=== PATIENT | male | born 1970 | race Caucasian/White ===

== ENCOUNTER 2019-03-14 09:06 | Emergency (ER) | payer BC, MEDICAID, OTHER ==
[~2019-03-14] VITALS: Ht 185.4 cm; Wt 127.3 kg
[2019-03-14 09:49] LABS: BASOPHILS % (AUTO) 0.3 % (0-1); EOSINOPHILS % (AUTO) 0.2 % (0-6); HEMATOCRIT 48.2 % (42.0-52.0); HEMOGLOBIN 16.6 g/dl (14.0-17.9); LYMPHOCYTES % (AUTO) 16.4 % (21-51); MEAN CORPUSCULAR HEMOGLOBIN 29.8 PG (27.0-31.0); MEAN CORPUSCULAR HGB CONC 34.5 g/dL (33.0-36.5); MEAN CORPUSCULAR VOLUME 86.5 FL (78-98); MEAN PLATELET VOLUME 10.1 FL (7.4-10.4); MONOCYTES % (AUTO) 16.6 % (2-12); NEUTROPHILS # (AUTO) 3.9 X10'3 (1.8-7.7); NEUTROPHILS % (AUTO) 66.5 % (42-75); PLATELET COUNT 177 X10'3 (140-440); RED BLOOD COUNT 5.57 X10'6 (4.70-6.10); RED CELL DISTRIBUTION WIDTH 13.4 % (11.5-14.5); WHITE BLOOD COUNT 5.9 X10'3 (4.5-11.0)
[2019-03-14 10:02] LABS: ALANINE AMINOTRANSFERASE 34 U/L (12-78); ALBUMIN 4.3 G/DL (3.4-5.0); ALKALINE PHOSPHATASE 80 IU/L (46-116); ANION GAP 16 (8-16); ASPARTATE AMINO TRANSFERASE 29 U/L (10-37); BILIRUBIN,TOTAL 0.8 MG/DL (0.1-1.0); BLOOD UREA NITROGEN 17 MG/DL (7-18); BUN/CREATININE RATIO 14.5 (5.4-32.0); CALCIUM 9.6 MG/DL (8.5-10.1); CHLORIDE 100 MMOL/L (99-107); CREATININE 1.17 MG/DL (0.60-1.10); GLUCOSE 134 MG/DL (70-104); POTASSIUM 3.6 MMOL/L (3.5-5.1); SODIUM 134 MMOL/L (135-145); TOTAL CARBON DIOXIDE 17.9 MMOL/L (24-32); TOTAL PROTEIN 8.5 G/DL (6.4-8.2); eGFR 67 ML/MIN
[2019-03-14] MEDS ORDERED: ondansetron/PF 4mg/2ml inj IV ONE (10:10)
[2019-03-14] MEDS ORDERED: LORazepam 2 mg/ml vial IV ONE (10:10)
[2019-03-14] MEDS ORDERED: normal saline 1000ML IV soln IVB ONE (10:10)
[2019-03-14] MEDS ORDERED: ONDA4TAB12 PO (10:36)
[2019-03-14] MEDS ORDERED: AZIT-72 PO (10:37)
[2019-03-14 10:55] VITALS: BP 156/101
== END 2019-03-14 10:47 | disposition home or self-care (01) ==
LOC: ER 09:06
DX: E86.0 Dehydration (principal); R11.2 Nausea with vomiting, unspecified; R19.7 Diarrhea, unspecified; R42 Dizziness and giddiness; R07.9 Chest pain, unspecified; F12.90 Cannabis use, unspecified, uncomplicated; I10 Essential (primary) hypertension; E11.9 Type 2 diabetes mellitus without complications; Z88.6 Allergy status to analgesic agent; Z79.2 Long term (current) use of antibiotics; Z79.899 Other long term (current) drug therapy
CPT/HCPCS: 36415; 71046; 80053; 85025; 93005; 96374; 96375; 99284; J2060; J2405; J7030

== ENCOUNTER 2023-09-20 11:05 | Inpatient (IN) | payer BC ==
[~2023-09-20] VITALS: Ht 185.4 cm; Wt 115.9 kg
[~2023-09-20 11:05] MED LIST: ONDA4TAB12 PO
[2023-09-20 11:32] LABS: BASOPHILS % (AUTO) 0.4 % (0-1); EOSINOPHILS # (AUTO) 0.1 X10'3 (0-0.9); EOSINOPHILS % (AUTO) 0.5 % (0-6); HEMATOCRIT 48.6 % (42.0-52.0); HEMOGLOBIN 16.2 g/dl (14.0-17.9); LYMPHOCYTES % (AUTO) 23.9 % (21-51); MEAN CORPUSCULAR HEMOGLOBIN 29.2 PG (27.0-31.0); MEAN CORPUSCULAR HGB CONC 33.3 g/dL (33.0-36.5); MEAN CORPUSCULAR VOLUME 87.5 FL (78-98); MEAN PLATELET VOLUME 9.7 FL (7.4-10.4); MONOCYTES % (AUTO) 8.4 % (2-12); NEUTROPHILS # (AUTO) 8.3 X10'3 (1.8-7.7); NEUTROPHILS % (AUTO) 66.8 % (42-75); PLATELET COUNT 237 X10'3 (140-440); RED BLOOD COUNT 5.56 X10'6 (4.70-6.10); RED CELL DISTRIBUTION WIDTH 13.5 % (11.5-14.5); WHITE BLOOD COUNT 12.4 X10'3 (4.5-11.0)
[2023-09-20 11:54] LABS: ALANINE AMINOTRANSFERASE 30 U/L (12-78); ALBUMIN 3.8 G/DL (3.4-5.0); ALBUMIN/GLOBULIN RATIO 1.2 (1.1-1.5); ALKALINE PHOSPHATASE 64 IU/L (46-116); ANION GAP 6 (8-16); ASPARTATE AMINO TRANSFERASE 20 U/L (10-37); BILIRUBIN,TOTAL 0.5 MG/DL (0.1-1.0); BLOOD UREA NITROGEN 9 MG/DL (7-18); BUN/CREATININE RATIO 9.6 (10.0-20.0); CHLORIDE 105 MMOL/L (99-107); CREATININE 0.94 MG/DL (0.60-1.10); GLUCOSE 138 MG/DL (70-104); SODIUM 137 MMOL/L (135-145); TOTAL CARBON DIOXIDE 25.7 MMOL/L (24-32); TOTAL PROTEIN 7.1 G/DL (6.4-8.2); eCRCL 105 ML/MIN; eGFR 85 ML/MIN
[2023-09-20 12:00] LABS: PRO BRAIN NATRIURETIC PEPTIDE 1087 PG/ML (0-125)
[2023-09-20 12:22] LABS: BILIRUBIN,URINE NEGATIVE (Neg); CLARITY,URINE SLIGHTLY CLOUDY (Clear); COLOR,URINE YELLOW (Yellow); GLUCOSE, URINE NEGATIVE (Neg); KETONES,URINE NEGATIVE (Neg); LEUKOCYTE ESTERASE ,URINE NEGATIVE (Neg); NITRITES, URINE NEGATIVE (Neg); OCCULT BLOOD,URINE NEGATIVE (Neg); PROTEIN,URINE NEGATIVE (Neg); UROBILINOGEN,URINE 0.2 E.U/dL (0.2-1.0)
[2023-09-20 12:34] LABS: UA COLLECTION TYPE NON-SPECIFIED
[2023-09-20 12:46] LABS: MUCUS STRANDS MODERATE /LPF (Neg); SQUAMOUS EPITHELIAL CELL,UR FEW /LPF (FEW)
[2023-09-20 12:47] LABS: BACTERIA,URINE FEW /HPF (Neg); RBC,URINE 0-2 /HPF (0-2); WBC,URINE 0-4 /HPF (0-4)
[2023-09-20] MEDS ORDERED: nitroGLYCERIN 1gm ointment UD TP ONE (14:05)
[2023-09-20] MEDS ORDERED: diltiazem 5mg/ml 5ml inj. IV ONE (14:05)
[2023-09-20] MEDS ORDERED: HYDROcodone/acetaminophen 5mg/325mg tablet PO PRN (16:00)
[2023-09-20] MEDS ORDERED: acetaminophen 325mg tablet PO PRN (16:00)
[2023-09-20] MEDS ORDERED: ondansetron/PF 4mg/2ml inj IV PRN (16:00)
[2023-09-20] MEDS ORDERED: magnesium Cl slow-release 64mg tablet PO PRN (16:00)
[2023-09-20] MEDS ORDERED: potassium Cl 20 mEq SR tablet PO PRN ×2 (16:00)
[2023-09-20] MEDS ORDERED: magnesium hydroxide 30ml (MOM) UD suspension PO PRN (16:00)
[2023-09-20] MEDS ORDERED: HYDROcodone/acetaminophen 10/325mg tab PO PRN (16:00)
[2023-09-20] MEDS: diltiazem CD 180mg cap (once-daily) PO SCH (16:18)
[2023-09-20] MEDS ORDERED: amiodarone 150mg/dext, iso-os 100 ML IV ONE (18:45)
[2023-09-20] MEDS: amiodarone/D5 360MG/200ML BAG 200 ML IV SCH (19:17)
[2023-09-20] MEDS: morphine 2 MG/ML inj. syringe IV PRN (20:32)
[2023-09-20] MEDS: apixaban 5mg tablet PO SCH (20:33)
[2023-09-20] MEDS: docusate sod 100mg capsule PO SCH (20:33)
[2023-09-20 21:15] VITALS: BP 153/102; PULSE 116; RESP 18; TEMP 98.6; O2SAT 96
[2023-09-20 22:00] VITALS: BP 128/86; PULSE 107; RESP 16
[2023-09-20] MEDS ORDERED: mag hydrox/Alum hydrox/simeth 30ml oral suspension PO PRN (22:00)
[2023-09-21] VITALS (13 sets, daily range): BP systolic 105–133; BP diastolic 68–98; PULSE 84–110; RESP 12–21; TEMP 97.7–99.1; O2SAT 94–98
[2023-09-21] MEDS: amiodarone/D5 360MG/200ML BAG 200 ML IV SCH ×2 (00:26→10:56)
[2023-09-21 07:32] LABS: BASOPHILS % (AUTO) 0.3 % (0-1); EOSINOPHILS # (AUTO) 0.1 X10'3 (0-0.9); EOSINOPHILS % (AUTO) 0.6 % (0-6); HEMATOCRIT 49.2 % (42.0-52.0); HEMOGLOBIN 16.4 g/dl (14.0-17.9); LYMPHOCYTES # (AUTO) 2.3 X10'3 (1.1-4.8); LYMPHOCYTES % (AUTO) 17.5 % (21-51); MEAN CORPUSCULAR HEMOGLOBIN 29.1 PG (27.0-31.0); MEAN CORPUSCULAR HGB CONC 33.3 g/dL (33.0-36.5); MEAN CORPUSCULAR VOLUME 87.4 FL (78-98); MEAN PLATELET VOLUME 9.4 FL (7.4-10.4); MONOCYTES # (AUTO) 1.1 X10'3 (0-0.9); MONOCYTES % (AUTO) 8.5 % (2-12); NEUTROPHILS # (AUTO) 9.7 X10'3 (1.8-7.7); NEUTROPHILS % (AUTO) 73.1 % (42-75); PLATELET COUNT 206 X10'3 (140-440); RED BLOOD COUNT 5.63 X10'6 (4.70-6.10); RED CELL DISTRIBUTION WIDTH 13.5 % (11.5-14.5); WHITE BLOOD COUNT 13.2 X10'3 (4.5-11.0)
[2023-09-21 07:40] LABS: ALANINE AMINOTRANSFERASE 29 U/L (12-78); ALBUMIN 3.5 G/DL (3.4-5.0); ALBUMIN/GLOBULIN RATIO 1.1 (1.1-1.5); ALKALINE PHOSPHATASE 66 IU/L (46-116); ANION GAP 7 (8-16); ASPARTATE AMINO TRANSFERASE 19 U/L (10-37); BILIRUBIN,TOTAL 0.4 MG/DL (0.1-1.0); BLOOD UREA NITROGEN 9 MG/DL (7-18); BUN/CREATININE RATIO 8.6 (10.0-20.0); CALCIUM 8.7 MG/DL (8.5-10.1); CHLORIDE 103 MMOL/L (99-107); CREATININE 1.05 MG/DL (0.60-1.10); GLUCOSE 161 MG/DL (70-104); MAGNESIUM 1.8 MG/DL (1.5-2.4); POTASSIUM 4.1 MMOL/L (3.5-5.1); SODIUM 137 MMOL/L (135-145); TOTAL PROTEIN 6.8 G/DL (6.4-8.2); eCRCL 94 ML/MIN; eGFR 74 ML/MIN
[2023-09-21] MEDS ORDERED: PANT40TA54 (07:43)
[2023-09-21] MEDS ORDERED: SEMA1PEN3 SQ (07:43)
[2023-09-21] MEDS ORDERED: LOSA100T58 PO (07:43)
[2023-09-21] MEDS ORDERED: TEST200V33 IM (07:43)
[2023-09-21] MEDS ORDERED: SEMA2PEN (07:43)
[2023-09-21] MEDS ORDERED: ROSU5TAB12 PO (07:43)
[2023-09-21] MEDS: morphine 2 MG/ML inj. syringe IV PRN (08:18)
[2023-09-21] MEDS: diltiazem CD 180mg cap (once-daily) PO SCH (08:21)
[2023-09-21] MEDS: docusate sod 100mg capsule PO SCH ×2 (08:21→20:09)
[2023-09-21] MEDS: apixaban 5mg tablet PO SCH ×2 (08:21→20:09)
[2023-09-21] MEDS ORDERED: nitroGLYCERIN 0.4mg SUBLingual tab SL PRN (14:15)
[2023-09-21] MEDS ORDERED: aminophylline 250mg/10ml inj. IV PRN (14:15)
[2023-09-21] MEDS ORDERED: regadenoson 0.4mg/5ml syringe IV PRN (14:15)
[2023-09-21] MEDS ORDERED: metoprolol tartrate 1mg/ml inj IV PRN (14:15)
[2023-09-21] MEDS: normal saline 1000ml 1,000 ML IV SCH (14:42)
[2023-09-21] MEDS: ondansetron 4mg rapidly disintigrating tab PO PRN (18:58)
[2023-09-21] MEDS: amiodarone 200mg tablet PO SCH (20:09)
[2023-09-21] MEDS: mag hydrox/Alum hydrox/simeth 30ml oral suspension PO PRN (20:11)
[2023-09-21] MEDS: metoprolol tartrate 25mg tablet PO SCH (20:11)
[2023-09-22] VITALS (11 sets, daily range): BP systolic 108–140; BP diastolic 70–90; PULSE 66–128; RESP 15–18; TEMP 97.6–98.2; O2SAT 96–99
[2023-09-22] MEDS: mag hydrox/Alum hydrox/simeth 30ml oral suspension PO PRN (00:08)
[2023-09-22] MEDS ORDERED: DEXTROSE 15 GM of carb/4 tabs (each vial/BOTTLE has 4 tablets) PO PRN ×2 (01:05)
[2023-09-22] MEDS ORDERED: insulin Lispro (HumaLOG) vial - multi-dose SQ SCH (01:05)
[2023-09-22] MEDS ORDERED: glucagon, human recombinant 1mg kit SUBCUT PRN (01:05)
[2023-09-22] MEDS ORDERED: dextrose 50%-water 50ml dispensing syringe IV PRN ×2 (01:05)
[2023-09-22] MEDS ORDERED: MESSAGE TO PHARMACY PO ONE (01:05)
[2023-09-22] MEDS: ondansetron 4mg rapidly disintigrating tab PO PRN (02:50)
[2023-09-22] MEDS: normal saline 1000ml 1,000 ML IV SCH (03:42)
[2023-09-22 07:50] LABS: BASOPHILS % (AUTO) 0.2 % (0-1); EOSINOPHILS # (AUTO) 0.1 X10'3 (0-0.9); EOSINOPHILS % (AUTO) 0.7 % (0-6); HEMATOCRIT 48.9 % (42.0-52.0); HEMOGLOBIN 16.6 g/dl (14.0-17.9); LYMPHOCYTES # (AUTO) 2.1 X10'3 (1.1-4.8); LYMPHOCYTES % (AUTO) 18.6 % (21-51); MEAN CORPUSCULAR HEMOGLOBIN 29.8 PG (27.0-31.0); MEAN CORPUSCULAR VOLUME 87.6 FL (78-98); MEAN PLATELET VOLUME 9.3 FL (7.4-10.4); MONOCYTES % (AUTO) 8.7 % (2-12); NEUTROPHILS # (AUTO) 8.2 X10'3 (1.8-7.7); NEUTROPHILS % (AUTO) 71.8 % (42-75); PLATELET COUNT 222 X10'3 (140-440); RED BLOOD COUNT 5.58 X10'6 (4.70-6.10); RED CELL DISTRIBUTION WIDTH 13.6 % (11.5-14.5); WHITE BLOOD COUNT 11.5 X10'3 (4.5-11.0)
[2023-09-22] MEDS: diltiazem CD 180mg cap (once-daily) PO SCH (08:31)
[2023-09-22] MEDS: apixaban 5mg tablet PO SCH (08:31)
[2023-09-22] MEDS: docusate sod 100mg capsule PO SCH (08:31)
[2023-09-22] MEDS: amiodarone 200mg tablet PO SCH (08:31)
[2023-09-22] MEDS: metoprolol tartrate 25mg tablet PO SCH (08:32)
[2023-09-22 09:18] LABS: ALANINE AMINOTRANSFERASE 31 U/L (12-78); ALBUMIN 3.7 G/DL (3.4-5.0); ALBUMIN/GLOBULIN RATIO 1.1 (1.1-1.5); ALKALINE PHOSPHATASE 67 IU/L (46-116); ANION GAP 9 (8-16); ASPARTATE AMINO TRANSFERASE 19 U/L (10-37); BILIRUBIN,TOTAL 0.7 MG/DL (0.1-1.0); BLOOD UREA NITROGEN 9 MG/DL (7-18); BUN/CREATININE RATIO 7.8 (10.0-20.0); CALCIUM 8.9 MG/DL (8.5-10.1); CHLORIDE 103 MMOL/L (99-107); CREATININE 1.15 MG/DL (0.60-1.10); GLUCOSE 145 MG/DL (70-104); POTASSIUM 4.8 MMOL/L (3.5-5.1); SODIUM 139 MMOL/L (135-145); TOTAL CARBON DIOXIDE 27.5 MMOL/L (24-32); TOTAL PROTEIN 7.1 G/DL (6.4-8.2); eCRCL 86 ML/MIN; eGFR 67 ML/MIN
[2023-09-22] MEDS ORDERED: ATOR20TA PO (11:33)
[2023-09-22] MEDS ORDERED: APIX5TAB3 PO (11:33)
[2023-09-22] MEDS ORDERED: LOP25T PO (11:33)
[2023-09-22] MEDS ORDERED: AMI200T PO (11:33)
[2023-09-22] MEDS ORDERED: LOSA50TA64 PO (11:33)
[2023-09-22] MEDS ORDERED: DILT180C66 PO (11:33)
[2023-09-22] MEDS ORDERED: insulin glargine (Lantus) pen - multi-dose SQ SCH (21:00)
== END 2023-09-22 12:25 | disposition home or self-care (01) | DRG 310 ==
LOC: ER 11:05 → ED HOLD 16:01 → PCU 3S 21:05
PROVIDERS: ADMIT Internal Medicine; ATTEND Internal Medicine
PROC: 4A02XM4 Measurement of Cardiac Total Activity, External Approach (ICD-10-PCS; principal; 2023-09-22)
PROC: 3E033HZ Introduction of Radioactive Substance into Peripheral Vein, Percutaneous Approach (ICD-10-PCS; 2023-09-22)
DX: I48.91 Unspecified atrial fibrillation (principal); I10 Essential (primary) hypertension; E11.9 Type 2 diabetes mellitus without complications; R07.9 Chest pain, unspecified; I42.9 Cardiomyopathy, unspecified; K21.9 Gastro-esophageal reflux disease without esophagitis; Z88.6 Allergy status to analgesic agent; Z82.49 Family history of ischemic heart disease and other diseases of the circulatory system; Z79.899 Other long term (current) drug therapy; Z72.0 Tobacco use
CPT/HCPCS: 36415; 71045; 78452; 80053; 81001; 82948; 83036; 83735; 83880; 84484; 85025; 87081; 93005; 93017; 93306; 99285; A9500; G0378; J0282; J1815; J2270; J2405; J2785; J3490; J7030